=== PATIENT | male | born 2000 | race Caucasian/White ===

== ENCOUNTER 2020-09-14 09:31 | Emergency (ER) | payer OTHER ==
[2020-09-14 10:02] VITALS: BP 119/76; PULSE 72; TEMP 98.5; BMI 25.1
[2020-09-14] MEDS ORDERED: ONDANSETRON *ODT* 4 MG TABLET SL ONE (10:18)
[2020-09-14] MEDS ORDERED: FAMOTIDINE 20 MG TABLET PO ONE (10:18)
[2020-09-14] MEDS ORDERED: MAG HYDROX/AL HYDROX/SIMETH 30 ML UNIT-DOSE CUP PO ONE (10:18)
[2020-09-14 10:36] LABS: BASO % 0.6 % (0-2.0); EOS % 2.6 % (0-4.5); HEMATOCRIT 45.6 % (35.4-49); LYMPH % 26.5 % (8-40); MCH 28.2 pg (25.7-33.7); MCHC 35.1 g/dl (32.0-35.9); MEAN CELL VOLUME 80.3 fl (80-96); MEAN PLT VOLUME 8.4 fl (7.5-11.1); MONO % 6.9 % (3.8-10.2); NEUT % 63.4 % (42.8-82.8); PLATELET COUNT 159 10^3/uL (134-434); RBC 5.68 M/mm3 (4.00-5.60); RDW 13.3 % (11.9-15.9); WHITE BLOOD COUNT 5.7 K/mm3 (4.0-10.0)
[2020-09-14] MEDS ORDERED: ONDANSETRON *ODT* 4 MG TABLET ONE (10:36)
[2020-09-14] MEDS ORDERED: FAMOTIDINE 20 MG TABLET ONE (10:36)
[2020-09-14] MEDS ORDERED: MAG HYDROX/AL HYDROX/SIMETH 30 ML UNIT-DOSE CUP ONE (10:36)
[2020-09-14 10:53] LABS: ALBUMIN 4.3 g/dl (3.4-5.0); BLOOD UREA NITROGEN 8.3 mg/dL (7-18); CALCIUM 9.3 mg/dL (8.5-10.1)
[2020-09-14 10:57] LABS: CREATININE 0.8 mg/dL (0.55-1.3)
[2020-09-14 10:58] LABS: BILIRUBIN,TOTAL 0.7 mg/dL (0.2-1); TOT PROT 7.8 g/dl (6.4-8.2)
== END 2020-09-14 11:27 | disposition home or self-care (01) ==
LOC: JER 09:31
DX: R10.13 Epigastric pain (principal)
CPT/HCPCS: 36415; 80053; 83690; 85025; 99283-25; Q0162

== ENCOUNTER 2020-10-19 23:31 | Emergency (ER) | payer OTHER ==
[2020-10-19 23:52] VITALS: TEMP 99.4; BMI 25.7
[2020-10-20] MEDS ORDERED: DEXAMETHASONE SOD PHOSPHATE 10 MG/1 ML VIAL IVPUSH ONE (01:42)
[2020-10-20] MEDS ORDERED: KETOROLAC TROMETHAMINE 30 MG/1 ML VIAL IVPUSH ONE (01:42)
[2020-10-20] MEDS ORDERED: SODIUM CHLORIDE 0.9% 500 ML INFUS.BAG IV ONE (01:42)
[2020-10-20] MEDS ORDERED: KETOROLAC TROMETHAMINE 30 MG/1 ML VIAL ONE (01:47)
[2020-10-20] MEDS ORDERED: DEXAMETHASONE SOD PHOSPHATE 10 MG/1 ML VIAL ONE (01:47)
[2020-10-20 02:20] LABS: BASO % 0.4 % (0-2.0); EOS % 2.1 % (0-4.5); HEMATOCRIT 42.8 % (35.4-49); HEMOGLOBIN 15.1 GM/dL (11.7-16.9); LYMPH % 12.1 % (8-40); MCH 28.2 pg (25.7-33.7); MCHC 35.3 g/dl (32.0-35.9); MEAN CELL VOLUME 79.9 fl (80-96); MEAN PLT VOLUME 8.1 fl (7.5-11.1); MONO % 7.8 % (3.8-10.2); NEUT % 77.6 % (42.8-82.8); PLATELET COUNT 141 10^3/uL (134-434); RBC 5.36 M/mm3 (4.00-5.60); RDW 13.2 % (11.9-15.9); WHITE BLOOD COUNT 12.1 K/mm3 (4.0-10.0)
[2020-10-20 02:50] LABS: CALCIUM 9.3 mg/dL (8.5-10.1)
[2020-10-20 02:51] LABS: ALBUMIN 4.1 g/dl (3.4-5.0); BLOOD UREA NITROGEN 10.8 mg/dL (7-18)
[2020-10-20 02:54] LABS: CREATININE 0.8 mg/dL (0.55-1.3)
[2020-10-20 02:55] LABS: BILIRUBIN,TOTAL 0.7 mg/dL (0.2-1); TOT PROT 7.8 g/dl (6.4-8.2)
[2020-10-20 04:46] VITALS: BP 154/96; PULSE 91
== END 2020-10-20 05:03 | disposition home or self-care (01) ==
LOC: JER 23:31
PROC: 3E033GC Introduction of Other Therapeutic Substance into Peripheral Vein, Percutaneous Approach (ICD-10-PCS; principal; 2020-10-19)
DX: J03.90 Acute tonsillitis, unspecified (principal)
CPT/HCPCS: 36415; 70491-TC; 80053; 85025; 87880; 99285-25; J1100